=== PATIENT | female | born 1990 ===

== ENCOUNTER 2017-12-10 21:26 | Emergency (ER) | payer OTHER ==
[~2017-12-10] VITALS: Ht 167.6 cm; Wt 113.4 kg
[~2017-12-10 21:26] MED LIST: ORPH100T PO; SYNTHROID75 MCG PO
[2017-12-10] MEDS ORDERED: METFORMIN HCL500 MG (21:39)
[2017-12-11] MEDS ORDERED: ULTRACET PO (03:22)
== END 2017-12-11 03:37 | disposition home or self-care (01) ==
LOC: ER 21:26 → EDBD 21:28 → ER 12-11 03:37
DX: N83.291 Other ovarian cyst, right side (principal)

== ENCOUNTER 2018-05-24 00:17 | Emergency (ER) | payer OTHER ==
[~2018-05-24] VITALS: Ht 167.6 cm; Wt 108.9 kg
[~2018-05-24 00:17] MED LIST changes: +METFORMIN HCL500 MG; +ULTRACET PO
[2018-05-24] MEDS ORDERED: PHAZYME180 MG PO (05:42)
[2018-05-24] MEDS ORDERED: LEVSIN/SL0.125 MG SL (05:42)
== END 2018-05-24 05:52 | disposition home or self-care (01) ==
LOC: ER 00:17
DX: K29.70 Gastritis, unspecified, without bleeding (principal)